=== PATIENT | female | born 1975 | race Two or more races ===

== ENCOUNTER 2020-08-01 13:29 | Day surgery (SDC) | payer OTHER ==
[2020-07-31 10:17] VITALS: BP 105/71
[2020-07-31 10:38] LABS: BASOPHILS % (AUTO) 1 % (0-1); EOSINOPHILS % (AUTO) 1 % (1-7); LYMPHOCYTES % (AUTO) 25 % (22-44); MEAN CORPUSCULAR HEMOGLOBIN 30.6 pg (27.0-34.8); MEAN CORPUSCULAR HGB CONC 33.4 g/dL (32.4-35.8); MEAN PLATELET VOLUME 7.8 fL (7.4-10.4); MONOCYTES % (AUTO) 6 % (2-9); NEUTROPHILS % (AUTO) 67 % (42-75); PLATELET COUNT 423 x10^3/uL (130-400); RED BLOOD COUNT 3.91 x10^6/uL (3.82-5.3); RED CELL DISTRIBUTION WIDTH 12.6 % (9.6-15.2)
[2020-07-31 10:39] LABS: MD NO
[2020-07-31 10:44] LABS: MICROSCOPIC INDICATED
[2020-07-31 10:51] LABS: ALBUMIN 3.5 g/dL (3.4-5.0); ANION GAP 6 mmol/L (5-15); CALCIUM 9.3 mg/dL (8.5-10.1); CHLORIDE 106 mmol/L (98-107)
[2020-07-31 10:54] LABS: CREATININE 0.65 mg/dL (0.55-1.02)
[2020-07-31 10:55] LABS: ALANINE AMINOTRANSFERASE 21 U/L (12-78); ALKALINE PHOSPHATASE 83 U/L (45-117); BILIRUBIN,TOTAL 0.2 mg/dL (0.2-1.0); TOTAL PROTEIN 7.2 g/dL (6.4-8.2)
[~2020-08-01] VITALS: Ht 158.8 cm; Wt 65.7 kg
[~2020-08-01 13:29] MED LIST: CETI10TA76 PO; ESOM20CA PO; ESTR1TAB15 PO; HYDR8TAB PO; MULT-257 PO; MULT-449 PO; PROM25SU34 PR; VENL37.57 PO
[2020-08-01 14:00] VITALS: BP 105/71
[2020-08-01] MEDS ORDERED: CHLORHEXIDINE 15 ML UDC PO ONE (14:00)
[2020-08-01] MEDS ORDERED: LACTATED RINGERS 1,000 ML IV SCH (14:00)
[2020-08-01] MEDS ORDERED: METHYLENE BLUE 50 MG/10 ML AMP ONE (15:00)
[2020-08-01] MEDS ORDERED: LIDOCAINE 1%, 20ML ONE (15:00)
[2020-08-01] MEDS ORDERED: FLUORESCEIN SODIUM 500 MG/5 ML ONE (15:00)
[2020-08-01] MEDS ORDERED: EPINEPHRINE 1 MG/ML, 1ML ONE (15:00)
[2020-08-01] MEDS ORDERED: MIDAZOLAM 1 MG/ML, 2ML ONE (15:18)
[2020-08-01] MEDS ORDERED: FENTANYL PF 100 MCG/2ML ONE ×2 (15:18→16:27)
[2020-08-01] MEDS ORDERED: ONDANSETRON 2MG/ML, 2ML IVPush PRN (15:30)
[2020-08-01] MEDS ORDERED: hydrALAzine 20 MG/ML, 1ML IV PRN (15:30)
[2020-08-01] MEDS ORDERED: LABETALOL 5MG/ML, 20ML IV PRN (15:30)
[2020-08-01] MEDS ORDERED: OXYcodone 5 MG/5 ML ORAL.SOL UDC PO PRN (15:30)
[2020-08-01] MEDS ORDERED: PROMETHAZINE 25 MG/ML, 1ML IVPush PRN (15:30)
[2020-08-01] MEDS ORDERED: EPHEDRINE 50 MG/ML, 1ML IVPush PRN (15:30)
[2020-08-01] MEDS ORDERED: FENTANYL PF 100 MCG/2ML IV PRN (15:30)
[2020-08-01] MEDS ORDERED: SUGAMMADEX 200 MG/2 ML IVPush ONE (15:35)
[2020-08-01] MEDS ORDERED: KETOROLAC 30 MG/1 ML ONE (15:35)
[2020-08-01] MEDS ORDERED: LIDOCAINE-MPF 2% ,5ML ONE (15:35)
[2020-08-01] MEDS ORDERED: DEXAMETHASONE 4 MG/ML, 1ML ONE (16:24)
[2020-08-01] MEDS ORDERED: ROCURONIUM 10MG/ML,5ML ONE (16:24)
[2020-08-01] MEDS ORDERED: SUCCINYLCHOLINE 20 MG/ML, 10ML ONE (16:24)
[2020-08-01] MEDS ORDERED: ONDANSETRON 2MG/ML, 2ML ONE ×2 (16:24→20:17)
[2020-08-01] MEDS ORDERED: PROPOFOL 10 MG/ML, 20ML ONE (16:24)
[2020-08-01] MEDS ORDERED: LIDOCAINE 1%-EPI 1:100K, 20ML INFIL ONE (16:28)
[2020-08-01] MEDS ORDERED: HEPARIN 1,000 UNITS/ML, 10ML ONE (17:09)
[2020-08-01] MEDS ORDERED: HYDROmorphone 1 MG/ML, 1ML INJ ONE ×3 (17:15→20:24)
[2020-08-01] MEDS: HYDROmorphone 1 MG/ML, 1ML INJ IVPush PRN ×4 (17:18→20:30)
== END 2020-08-01 21:15 | disposition home or self-care (01) ==
LOC: OR 13:29
PROVIDERS: ATTEND Obstetrics & Gynecology Gynecology
DX: N83.02 Follicular cyst of left ovary (principal); N80.1 Endometriosis of ovary; N83.8 Other noninflammatory disorders of ovary, fallopian tube and broad ligament; Z20.822 Contact with and (suspected) exposure to COVID-19; Z79.899 Other long term (current) drug therapy; Z88.5 Allergy status to narcotic agent; Z88.8 Allergy status to other drugs, medicaments and biological substances; Z90.710 Acquired absence of both cervix and uterus
CPT/HCPCS: 36415; 58661; 80053; 81001; 85025; 87086; 88112; 88305; J0171; J0330; J1100; J1170; J1644; J1885; J2250; J2405; J2704; J3010; J7120; U0003; Q9968